=== PATIENT | female | born 1985 | race Caucasian/White ===

== ENCOUNTER → 2016-11-02 | Outpatient (CLI) | payer OTHER ==
[~2016-11-02] MED LIST: ASPI325T45 PO; FAMO20TA11 PO; PRLSR20 PO
--- NOTE | 2016-11-02 12:17 | DIAGNOSTIC IMAGING REPORT ---
Study: Fusion CT of the sinuses Method: transaxial acquisition with multi axial reformatted images FINDINGS: Moderate sclerosis/mucosal thickening of the mastoid air cells. Frontal sinuses are clear. Minimal mucosal thickening anterior aspect left maxillary sinus. The estimated units are patent bilaterally. There are mild hypertrophic change of the right inferior nasal turbinates. Sphenoid air cells are clear. No evidence for bony destructive process. IMPRESSION: Minimal mucosal thickening anterior left maxillary sinus. 2. Moderate hypertrophic change mid and inferior right nasal turbinate. 3. Sclerosis with mild mucosal thickening of the mastoid air cells bilaterally. Electronically signed by: Lázaro Koehler M.D. 11/02/2016 12:16 PM Dictated Date/Time: 11/02/2016 12:14 PM
== END | disposition home or self-care (01) ==
LOC: C.CTS 10:54
PROVIDERS: ATTEND Surgery
DX: J32.9 Chronic sinusitis, unspecified (principal)